=== PATIENT | female | born 1975 | race Caucasian/White ===

== ENCOUNTER 2018-01-09 11:06 | Outpatient (CLI) | payer OTHER ==
[~2018-01-09] VITALS: Ht 177.8 cm; Wt 72.7 kg
[2018-01-09] VITALS (7 sets, daily range): BP systolic 113–139; BP diastolic 71–74; PULSE 68–92; TEMP 98.2
[~2018-01-09 11:06] MED LIST: SERTRALINE50 MG PO
[2018-01-09] MEDS ORDERED: PRENATAL1 TA7 PO (11:31)
== END 2018-01-09 13:20 | disposition home or self-care (01) ==
LOC: LDRO 11:06
DX: O32.1XX0 Maternal care for breech presentation, not applicable or unspecified (principal); Z3A.38 38 weeks gestation of pregnancy
CPT/HCPCS: J3105

== ENCOUNTER 2018-01-17 18:08 | Inpatient (IN) | payer OTHER ==
[2018-01-17] VITALS (14 sets, daily range): BP systolic 101–133; BP diastolic 69–93; PULSE 69–86; TEMP 97.6–98.4
[~2018-01-17] VITALS: Ht 172.7 cm; Wt 77.3 kg
[~2018-01-17 18:08] MED LIST changes: +PRENATAL1 TA7 PO
[2018-01-17] MEDS ORDERED: ZOLOFT 100MG100 MG PO (18:46)
[2018-01-17 20:29] LABS: BASO # 0.1 (0.0-0.2); BASO % 0.4 % (0.0-2.0); EOS # 0.1 (0.0-0.7); EOS % 0.5 % (0-4.0); GRAN # 9.9 (1.4-6.5); GRAN % 80.2 % (42.2-75.2); HEMATOCRIT 41.1 % (37.0-47.0); HEMOGLOBIN 14.2 g/dl (12.5-16.0); LYMPH # 1.5 (1.2-3.4); LYMPH % 12.3 % (20.0-51.0); MEAN CELL VOLUME 94 fl (80.0-100.0); MEAN CORPUSCULAR HEMOGLOBIN 33 pg (27.0-31.0); MEAN CORPUSCULAR HGB CONC 35 g/dl (33.0-37.0); MEAN PLATELET VOLUME 10.8 fl (7.4-10.4); MONO # 0.7 (0.1-0.6); MONO % 5.5 % (1.7-9.3); PLATELET COUNT 143 K/mm3 (130-400); RED BLOOD COUNT 4.36 M/mm3 (4.10-5.30); REDCELL DISTRIBUTION WIDTH-CV 13.3 % (11.5-14.5)
[2018-01-18] VITALS (7 sets, daily range): BP systolic 95–137; BP diastolic 52–83; PULSE 69–81; TEMP 97.6–98
[2018-01-18 08:09] LABS: HEMATOCRIT 32.3 % (37.0-47.0); HEMOGLOBIN 11.2 g/dl (12.5-16.0)
[2018-01-18] MEDS ORDERED: IBU600 MG PO (10:33)
[2018-01-18] MEDS ORDERED: PERCOCET 325 MG1 TA2 PO (10:33)
[2018-01-19 09:00] VITALS: BP 122/70; PULSE 71; TEMP 98.1
[2018-01-19 16:30] VITALS: BP 125/78; PULSE 79; TEMP 98
[2018-01-19 20:10] VITALS: BP 122/74; PULSE 78; TEMP 97.7
[2018-01-20 09:20] VITALS: BP 118/78; PULSE 76; TEMP 97.7
== END 2018-01-20 14:30 | disposition home or self-care (01) | DRG 766 ==
LOC: LDRO 18:08 → OB 19:50 → LDR 19:50 → OB 22:45
PROVIDERS: Obstetrics & Gynecology
PROC: 10D00Z1 Extraction of Products of Conception, Low, Open Approach (ICD-10-PCS; principal; 2018-01-17)
PROC: 0UT70ZZ Resection of Bilateral Fallopian Tubes, Open Approach (ICD-10-PCS; 2018-01-17)
DX: O32.8XX0 Maternal care for other malpresentation of fetus, not applicable or unspecified (principal); Z3A.39 39 weeks gestation of pregnancy; Z37.0 Single live birth; Z40.03 Encounter for prophylactic removal of fallopian tube(s); O99.344 Other mental disorders complicating childbirth; F41.8 Other specified anxiety disorders
CPT/HCPCS: J0690; J1885; J2270; J2405; J2590; J2704; J3010; J7120